=== PATIENT | female | born 1990 | race Caucasian/White ===

== ENCOUNTER 2019-04-22 12:42 | Emergency (ER) | payer BC, SELFPAY ==
[2019-04-22 12:56] VITALS: BP 124/68; PULSE 112; RESP 18; TEMP 37; O2SAT 100
--- NOTE | 2019-04-22 13:09 | ED.GENADULT ---
HPI - General Adult General Chief complaint: Upper Respiratory Infection Stated complaint: chills/congestion/cough/sore throat Time Seen by Provider: 04/22/19 13:10 Source: patient and RN notes reviewed Mode of arrival: ambulatory Limitations: no limitations History of Present Illness HPI narrative: This is a 28 years old female presented office for evaluation of flulike symptoms since last night.Symptoms include extreme tired, body aches, feverish feeling, itchy eye/nose, and sore throat. She received influenza vaccine for the season back in January. She does not smoke. She exposed to cold illness at home.She took ibuprofen prior to arrival. Related Data Allergies Allergy/AdvReac Type Severity Reaction Status Date / Time No Known Allergies Allergy Unverified 07/31/13 08:14 Review of Systems Review of Systems: Narrative: CONSTITUTIONAL: Reports fever, chills, achy EYES: Denies visual changes. Reports watery/itchy eyes ENT: Denies ears pain. Reports scratchy throat. CARDIOVASCULAR: Denies chest pain RESPIRATORY: Denies dyspnea, wheezing. Reports alittle cough GASTROINTESTINAL: Denies abdominal pain, nausea, vomiting, diarrhea. GENITOURINARY: Denies urinary symptoms or discharge SKIN: Denies rash MUSCULOSKELETAL: Reports generalize achy pain NEUROLOGIC: Denies lightheaded PMFSH Social History Social History (Updated 04/22/19 @ 13:23 by KIMBERLY Cruz) Smoking status: Never smoker Comments At time of signature, I agree with nursing past medical, surgical, social and family history. There is no relevant family history pertinent to the presenting complaint. Exam Narrative: Exam Narrative: GENERAL: This is a well-nourished, well-developed patient, in no apparent distress. EYES: Sclera clear/white. Vision is grossly intact. EARS: External ears normal, auditory canals clear and without drainage, TMs normal without perforation. Hearing grossly intact. NOSE: External nose normal with no obvious nasal discharge, nares without redness, no rhinorrhea. THROAT: Mucous membranes moist, posterior pharynx clear. NECK: Neck supple, non-tender without lymphadenopathy, masses or thyromegaly. CARDIOVASCULAR: Regular rate and rhythm without murmurs, gallops, or rubs. RESPIRATORY: Clear to auscultation. Breath sounds equal bilaterally. No wheezes, rales, or rhonchi. GASTROINTESTINAL: Abdomen soft, non-tender, nondistended. Bowel sounds are active. No hepato-splenomegaly, or palpable masses. No guarding. SKIN: warm, intact with no suspicious lesions or rash, good texture and turgor. NEURO: awake, alert, and oriented to person, place and time. There were no obvious focal neurologic abnormalities. Steady gait Epsom Coma Scale Eye Opening: Spontaneous 4 Siria Coma Scale Motor: Obeys Commands 6 Siria Coma Scale Verbal: Oriented 5 Course Vital Signs Vital signs: Vital Signs Temperature 98.6 F 04/22/19 12:56 Pulse Rate 112 H 04/22/19 12:56 Respiratory Rate 18 04/22/19 12:56 Blood Pressure 124/68 04/22/19 12:56 Pulse Oximetry 100 04/22/19 12:56 Temperature 98.6 F 04/22/19 12:56 Pulse Rate 112 H 04/22/19 12:56 Respiratory Rate 18 04/22/19 12:56 Blood Pressure 124/68 04/22/19 12:56 Pulse Oximetry 100 04/22/19 12:56 Medical Decision Making MDM Narrative Medical decision making narrative: Discharge instructions reviewed with patient, as well as provided in writing per nursing staff. The instructions also include specific and strict return/GO TO THE ER as well as f/u information. All questions have been answered, and the patient deny any further questions with discharge and discharge plan. Differential Diagnosis Differential Diagnosis: pneumonia, Allergic Rhinitis, Upper respiratory cough syndrome, Pharyngitis, Sinusitis, Bronchitis, otitis media, viral URI, Asthma/reactive airway disease, influenza Medical Records Medical records reviewed: Yes I reviewed the patient's medical record
== END 2019-04-22 13:27 | disposition home or self-care (01) ==
PROVIDERS: Emergency Provider Nurse Practitioner
DX: J10.1 Influenza due to other identified influenza virus with other respiratory manifestations (principal)
CPT/HCPCS: 87804; 99203; G0463

== ENCOUNTER 2020-08-01 16:23 | Emergency (ER) | payer BC, SELFPAY ==
[2020-08-01 16:44] VITALS: BP 127/87; PULSE 77; RESP 19; TEMP 36.7; O2SAT 98
[2020-08-01 17:28] LABS: Basophils Percent Auto 0.7 % (0.2-1.2); Eosinophils Absolute Auto 0.1 K/mm3 (0-0.3); Eosinophils Percent Auto 1.7 % (0-4.4); Hematocrit 42.7 % (37.0-47.0); Hemoglobin 14.6 g/dL (12.0-15.0); Immature Granulocyte Absolute 0.01 K/mm3 (0.00-0.031); Immature Granulocyte Percent A 0.2 % (0-0.5); Lymphocytes Absolute Auto 2.06 K/mm3 (0.9-3.2); Lymphocytes Percent Auto 34.4 % (18.3-44.2); Mean Corpuscular HGB Conc 34.2 g/dl (32-36); Mean Corpuscular Hemoglobin 31.3 pg (26-34); Mean Corpuscular Volume 91.4 fl (80-100); Mean Platelet Volume 9.5 fl (7.4-10.4); Monocytes Absolute Auto 0.4 K/mm3 (0.1-0.6); Monocytes Percent Auto 5.9 % (2.6-8.5); Neutrophils Absolute Auto 3.4 K/mm3 (1.3-6.7); Neutrophils Percent Auto 57.1 % (45.5-73.1); Platelet Count Result 229 k/mm3 (150-375); Red Blood Count 4.67 M/mm3 (4.2-5.4); Red Cell Distribution Width 12.4 % (11.5-14.5)
[2020-08-01 17:36] LABS: Add Urine Microscopic? YES; Appearance Urine Cloudy (Clear); Bacteria Urine Trace /hpf; Bilirubin Urine Negative (Negative); Blood Urine 3+ (Negative); Color Urine Yellow (Yellow); Glucose Urine UA Negative (Negative); Ketones Urine Negative (Negative); Leukocyte Esterase Ur Negative LEU/UL (Negative); Mucus Urine Few /lpf; Nitrate Urine Negative (Negative); Protein Urine 1+ mg/dL (Negative); RBC Urine 0-2 /hpf (0-2); Specific Grav Ur 1.016 (1.001-1.035); Squamous Epithelial Cell Urine Moderate /hpf (Few); Urobilinogen Urine Negative mg/dL (<2.0); WBC Urine 0-3 /hpf
[2020-08-01 17:39] LABS: Alanine Aminotransferase 17 U/L (4-35); Albumin Level 5.2 g/dL (3.5-5.1); Alkaline Phosphatase 57 U/L (38-126); Anion Gap 5 mmol/L (8-16); Aspartate Amino Transferase 32 U/L (14-36); Bilirubin,Total 1.4 mg/dL (0.2-1.3); Blood Urea Nitrogen 10 mg/dL (7-17); Carbon Dioxide 29 mmol/L (22-30); Chloride 104 mmol/L (98-107); Estimated Glomerular Filt Rate > 60; Glucose 88 mg/dL (65-105); Potassium 3.5 mmol/L (3.4-5.0); Sodium 138 mmol/L (137-145)
[2020-08-01 17:58] LABS: Ethanol < 10 mg/dL (<10)
[2020-08-01 18:16] LABS: Amphetamine Screen Urine Positive (Negative); Barbiturate Screen Urine Negative (Negative); Benzodiazepines Screen Urine Negative (Negative); Cannabinoid Screen Urine Positive (Negative); Cocaine Screen Urine Negative (Negative); Methadone Screen Urine Negative (Negative); Opiate Screen Urine Negative (Negative); Phencyclidine Screen Urine Negative (Negative)
--- NOTE | 2020-08-01 18:21 | ED.GENADULT ---
HPI - General Adult General Chief complaint: Psychiatric Symptoms Stated complaint: need evaluated Time Seen by Provider: 08/01/20 18:20 History of Present Illness HPI narrative: 29 yo female w/ h/o ADHD presents from home for psychiatric evaluation. 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 At times she feels that she imprisoned in her home. She also has concerns related to eye strain from the computer. In addition she also went through a break up and moved twice during this time. At times the history she provides is rambling and difficult to follow. Her father reports that the family is concerned because they have seen significant changes in her behavior. Her mood has been labile. They are concerned that this may be due to taking adderall, which she has been prescribed for quite some time. He called her counselor who suggested that she come here for evaluation. Related Data Allergies Allergy/AdvReac Type Severity Reaction Status Date / Time No Known Allergies Allergy Unverified 07/31/13 08:14 Review of Systems Review of Systems: All systems reviewed & are unremarkable except as noted in HPI and below Constitutional: Constitutional: Denies chills and Denies fever(s) Eyes: Eyes: Reports no additional eye complaints Cardiovascular: Cardiovascular: Denies chest pain Respiratory: Respiratory: Denies dyspnea Gastrointestinal: Gastrointestinal: Denies abdominal pain and Denies nausea Genitourinary: Genitourinary: Reports no additional female genitourinary complaints Neurologic: Denies confusion Psychiatric: Psychiatric: Reports anxiety, Denies homicidal ideation and Denies suicidal ideation PMFSH Social History Social History Smoking status: Never smoker Substance use type: prescription drug Gender identity (if verbalized by the patient): Female Exam Const: General: healthy appearing, no acute distress and alert Nutritional Appearance: well nourished Orientation/consciousness: patient oriented x3 HENMT: Head: normal to inspection Eyes: Pupils: Equal, round and reactive pupils present EOM: EOMs intact bilaterally Neck: Neck: normal visual inspection Resp: Effort & Inspection: normal respiratory effort Auscultation: clear to auscultation bilaterally Cardio: Rate: regular rate Rhythm: regular rhythm Skin: General skin exam: normal color Neuro: General: patient oriented x3, moves all extremities and CN's II-XI intact bilaterally Speech: normal speech Gait exam (Neuro): Normal gait present Extrem: General: normal to inspection Psych: Speech and movement: Restless speech present Affect: Labile affect present Attitude: cooperative Thought process: Flight of ideas present Thought content: No Suicidality present, No Homicidality present and No Hallucination(s) present Insight: Fair insight present (Psych) Course Vital Signs Vital signs: Vital Signs Temperature 36.7 C 08/01/20 16:44 Pulse Rate 77 08/01/20 16:44 Respiratory Rate 19 08/01/20 16:44 Blood Pressure 127/87 08/01/20 16:44 Pulse Oximetry 98 08/01/20 16:44 Temperature 36.7 C 08/01/20 16:44 Pulse Rate 77 08/01/20 16:44 Respiratory Rate 19 08/01/20 16:44 Blood Pressure 127/87 08/01/20 16:44 Pulse Oximetry 98 08/01/20 16:44 Medical Decision Making MDM Narrative Medical decision making narrative: She may be hypomanic. She does not seem to be a danger to herself or others at this point, although she would likely benefit from psychiatric treatment. Crisis has seen her and agree that she does not meet criteria for admission. They will provide resources and a safety plan. Medical Records Medical records reviewed: Yes I reviewed the external patient's medical records. Vital Signs Vital Signs: Vital Signs Temperature 36.7 C 08/01/20 16:44 Pulse Ra
--- NOTE | 2020-08-01 19:20 | PC.NURSE ---
Report received from NIKITA Silvestre. Crisis is at bedside at current time for evaluation.
== END 2020-08-01 20:31 | disposition home or self-care (01) ==
PROVIDERS: Emergency Provider Emergency Medicine; PCP Physician Assistant
DX: F43.9 Reaction to severe stress, unspecified (principal)
CPT/HCPCS: 36415; 80053; 80307; 81001; 81025; 84443; 85025; 99284

== ENCOUNTER 2022-12-23 11:19 | Outpatient (CLI) | payer BC, SELFPAY ==
--- NOTE | ~2022-12-23 | XR_ITS ---
XR sinus min 3V DATE: 12/23/2022 11:52 INDICATION: Chronic sinusitis TECHNIQUE: Submental vertical, lateral, Quiroga and Benitez views COMPARISON: None FINDINGS: The paranasal sinuses appear normally developed and aerated. Mastoid air cells likewise randolph ear normally developed and aerated. Normal sella turcica. Mild normal pineal calcification. IMPRESSION: Patent and apparently well aerated paranasal sinuses and mastoid air cells Reviewed, dictated and finalized at location A. IMPRESSION: Patent and apparently well aerated paranasal sinuses and mastoid ai r cells
== END 2022-12-23 11:20 | disposition home or self-care (01) ==
PROVIDERS: PCP Nurse Practitioner Adult Health; Visit Provider Nurse Practitioner Adult Health
DX: J32.9 Chronic sinusitis, unspecified (principal)
CPT/HCPCS: 70220